=== PATIENT | female | born 1995 | race Caucasian/White ===

== ENCOUNTER 2020-10-18 22:38 | Emergency (ER) | payer OTHER ==
[~2020-10-18] VITALS: Ht 210.8 cm; Wt 59.0 kg
[2020-10-19] MEDS ORDERED: PROTONIX40 MG PO (01:06)
[2020-10-19] MEDS ORDERED: ZOFRAN4 MG PO (01:08)
== END 2020-10-19 01:23 | disposition home or self-care (01) ==
LOC: ER 22:38
DX: R11.11 Vomiting without nausea (principal)